=== PATIENT | male | born 1985 | race Caucasian/White ===

== ENCOUNTER → 2016-10-11 | Day surgery (SDC) | payer OTHER ==
[~2016-10-11] VITALS: Ht 180.3 cm; Wt 99.8 kg
[~2016-10-11] MED LIST: PERCOCET 5-3251 EACH PO
--- NOTE | 2016-10-11 10:56 | Operative Report ---
Operative/Inv Procedure Report Surgery Date: 10/11/16 Name of Procedure: right renal eswl. scrotal lesion excision Pre-Operative Diagnosis: right kidney stone 5mm. scrotal lesions x2. Post-Operative Diagnosis: same Estimated Blood Loss: scant Surgeon/Catalogue Compiler: ARIC PONCE MD Anesthesia: moderate sedation, block Specimens: scrotal lesion Complications: none Operative/Procedure Note Note: The patient was taken to the operating room and placed on the ESWL table in supine position. The patient's right flank was positioned over the table cut- out, overlying the dome of the treatment head. Timeout was performed, with the patient awake, in order to confirm the correct identity, side, anesthesia, procedure and other pertinent zander-operative information. The patient was then anesthesized. Once the patient was adequately sedated, fluoroscopy, as well as Renal ultrasound was used to locate the right renal stone. Renal US was used to confirm the placement of the stone, and measured it to be approximately 5 mm in size at the right renal pelvis. Additionally, renal U/S revealed no hydronephrosis, and no solid tumor. With the stone's position optimized, using AP and oblique fluoroscopy views, the right renal E.S.W.L. was initiated at low energy level. After noting the patient's tolerance to the shockwaves, the intensitiy was ramped up to maximum level. At the end of the procedure, the composition of the right renal stone had changed significantly, indicating the shattering of the renal stone. Of note, a total of 2500 shockwaves were delivered to the stones. The patient was then frog legged, draped and prepped in the usual surgical fashion. Local anesthesia with 2% lidocaine and quarter percent Marcaine in a 50:50 mix was used to anesthetize the scrotal skin underlying the two scrotal lesions. The smallest lesion was fulgurated using Bovie cautery. The larger lesion was excised using a 15 blade knife, to undermine the lesion and subdermal layers. The specimen was sent to pathology. Bovie cautery was used to ensure hemostasis. And the skin was closed using interrupted 2-0 chromic sutures. Bacitracin on the incision, with fluff gauze, secured with jockstrap was placed on the patient. The patient tolerated the procedures well, was awakened, then taken to recovery in satisfactory condition via stretcher. The patient was dischared home with pain medications, antibiotics, diet orders, and intructions to catch fragments by straining the urine. The patient to to have follow-up renal ultrasound and KUB in 1 to 2 weeks, prior to follow-up visit in my office. Discharge Disposition: PACU CC: KRIS CROCKETT,ARIC
== END ==
LOC: STS 02:20
DX: N20.0 Calculus of kidney (principal); N50.89 Other specified disorders of the male genital organs
CPT/HCPCS: 88305; J2250; J3370